=== PATIENT | male | born 1960 | race Asian ===

== ENCOUNTER 2019-12-18 14:33 | Emergency (ER) | payer BC ==
[~2019-12-18] VITALS: Ht 167.6 cm; Wt 61.2 kg
[2019-12-18 15:01] VITALS: Ht 167.6 cm; Wt 61.2 kg
[2019-12-18 15:34] VITALS: BP 127/67
== END 2019-12-18 15:34 | disposition left against medical advice (07) ==
LOC: ED 14:33
DX: Z45.2 Encounter for adjustment and management of vascular access device (principal)